=== PATIENT | female | born 2000 | race Caucasian/White ===

== ENCOUNTER 2024-04-06 16:40 | Emergency (ER) | payer MEDICAID ==
[2024-04-06 18:36] LABS: MAGNESIUM 1.8 mg/dL (1.7-2.3)
[2024-04-06 18:42] LABS: CALCIUM 10.1 mg/dL (8.5-10.3); CREATININE 0.6 mg/dL (0.6-1.3); POTASSIUM 3.1 mmol/L (3.5-4.5)
--- NOTE | 2024-04-06 19:40 | ED Physician Documentation ---
History of Present Illness - Stated complaint Stated Complaint: NAUSEA/VOMIT - Chief complaint Chief Complaint: Abd Pain - Additonal information Additional information: 23-year-old female who is approximately 8 weeks who has had a history of a stress send presents with nausea and vomiting. The patient has been dealing with nausea and vomiting since about 6 weeks of but worse the last several days. She was concerned she was getting dehydrated and was unable to keep anything down. She did have a virtual visit with her OB and they prescribed promethazine but patient was not able to keep this down this is here in the ER today requesting IV fluids. She does not have fever or chills, denies any abdominal pain, no vaginal bleeding, no dysuria urgency or frequency no diarrhea. No known sick contacts. Review of Systems Constitutional: reports: Reviewed and negative Ears: reports: Reviewed and negative Throat: reports: Reviewed and negative Cardiac: reports: Reviewed and negative Respiratory: reports: Reviewed and negative GI: reports: Nausea, Vomiting : reports: Now EGA Musculoskeletal: reports: Reviewed and negative Neurologic: reports: Generalized weakness PD PAST MEDICAL HISTORY - Past Medical History Past Medical History: No - Past Surgical History Past Surgical History: No - Present Medications Home Medications: Ambulatory Orders Medication Instructions Recorded Confirmed Doxylamine/Pyridoxine HCl 1 each PO QPM PRN #30 tab 04/06/24 [Cayden Kelsey 10-10 mg Tablet] Ondansetron Odt [Zofran] 4 mg TL Q6H PRN #10 tablet 04/06/24 Pnv No.95/Ferrous Fum/Folic AC 1 tab PO DAILY 04/06/24 04/06/24 [ Caplet] Promethazine Supp [Phenergan Supp] 1 supp NV BID PRN 04/06/24 04/06/24 - Allergies Allergies/Adverse Reactions: Allergies Allergy/AdvReac Type Severity Reaction Status Date / Time No Known Drug Allergies Allergy Verified 04/06/24 16:50 - Social History Does the pt smoke?: No Smoking Status: Never smoker Does the pt drink ETOH?: No PD ED PE NORMAL - Vitals Vital signs reviewed: Yes - General General: Alert and oriented X 3, No acute distress, Well developed/nourished - HEENT HEENT: Atraumatic, Moist mucous membranes - Cardiac Cardiac: No murmur, No gallop, No rub, Strong equal pulses, Other (Mild tachycardia) - Respiratory Respiratory: No respiratory distress, Clear bilaterally - Abdomen Abdomen: Normal bowel sounds, Soft, Non tender, Non distended Results - Vitals Vitals: Vital Signs - 24 hr 04/06/24 04/06/24 16:43 19:51 Temperature 36.6 C 37.6 C Heart Rate 111 H 100 Respiratory 16 18 Rate Blood Pressure 127/76 122/80 O2 Saturation 99 100 Oxygen O2 Source Room air - Labs Labs: Laboratory Tests 04/06/24 04/06/24 18:03 18:03 WBC 9.2 RBC 4.57 Hgb 13.6 Hct 39.6 MCV 86.7 MCH 29.8 MCHC 34.3 RDW 11.2 L Plt Count 359 MPV 9.4 Neut # (Auto) 6.3 Lymph # (Auto) 1.9 Randolph # (Auto) 0.8 Eos # (Auto) 0.0 Baso # (Auto) 0.0 Absolute Nucleated RBC 0.00 Nucleated RBC % 0.0 Sodium 131 L Potassium 3.1 L Chloride 93 L Carbon Dioxide 28 Anion Gap 10.0 BUN 15 Creatinine 0.6 Estimated GFR (MDRD) 124 Glucose 103 Calcium 10.1 Magnesium 1.8 PD Medical Decision Making - ED course Complexity details: reviewed results, re-evaluated patient, considered d ifferential, d/w patient, d/w family ED course: 23-year-old female presents with nausea and vomiting during the first trimester of . She has had symptoms for past 2 to 2-1/2 weeks but worse the last several days. She is well-appearing here on physical exam, mildly tachycardic but nontoxic, has no abdominal pain, no vaginal bleeding. Labs were obtained which are generally reassuring potassium slightly low at 3.1. We have given IV fluids, antiemetics and potassium replacement. Patient is tolerating some oral fluids and will discharge home after the conclusion of her medications. She should continue follow-up with her OB, we discussed supportive measures. I will also add Zofran as needed for her symptoms. Departure - Departure Clinical Impression: Hyperemesis gravidarum with electrolyte imbalance, Hypokalemia Condition: Good Instructions: ED Potassium Deficiency, ED Preg Morning Sickness Prescriptions: Doxylamine/Pyridoxine HCl [Cayden Kelsey 10-10 mg Tablet] 1 each PO QPM PRN #30 tab PRN Reason: Nausea / Vomiting Ondansetron Odt [Zofran] 4 mg TL Q6H PRN #10 tablet PRN Reason: Nausea / Vomiting Comments: I have prescribed a new nausea medication for you called Zofran which is dissolvable under your tongue, and I also prescribed medication to take at nighttime which will help with nausea but can also make you very sleepy. These are both generally considered safe to take in though you should use only as needed. Please continue follow-up with your primary doctor regarding your nausea and vomiting. This typically improves as you get into the second trimester but some people unfortunately suffer with that throughout their . Your potassium was slightly low today and we replaced that here, try to work on getting potassium in your diet through electrolytes solutions and things like fruits and vegetables. Forms: PCP List
[2024-04-06 19:50] LABS: BASOPHILS % (AUTO) 0.2 %; EOSINOPHILS % (AUTO) 0.4 %; HCT - HEMATOCRIT 39.6 % (37.0-47.0); HGB - HEMOGLOBIN 13.6 g/dL (12.0-16.0); LYMPHOCYTES # (AUTO) 1.9 10^3/uL (1.5-3.5); LYMPHOCYTES % (AUTO) 21.1 %; MEAN CORPUSCULAR HEMOGLOBIN 29.8 pg (27.0-31.0); MEAN CORPUSCULAR HGB CONC 34.3 g/dL (32.0-36.0); MEAN CORPUSCULAR VOLUME 86.7 fL (81.0-99.0); MEAN PLATELET VOLUME 9.4 fL (7.9-10.8); MONOCYTES # (AUTO) 0.8 10^3/uL (0.0-1.0); MONOCYTES % (AUTO) 8.9 %; NEUTROPHILS # (AUTO) 6.3 10^3/uL (1.5-6.6); NEUTROPHILS % (AUTO) 68.9 %; PLT - PLATELET COUNT 359 10^3/uL (130-450); RED BLOOD COUNT 4.57 10^6/uL (4.20-5.40); RED CELL DISTRIBUTION WIDTH 11.2 % (12.0-15.0); WHITE BLOOD COUNT 9.2 x10^3/uL (4.8-10.8)
[2024-04-06] MEDS: SODIUM CHLORIDE 0.9% 1,000 ML IV STA ×2 (19:53→21:15)
[2024-04-06] MEDS: ONDANSETRON 4 MG/2 ML VIAL IVP STA (19:54)
[2024-04-06] MEDS: POTASSIUM CHLOR 10 MEQ/100 ML 10 MEQ/100 ML BAG IV ONE (20:13)
[2024-04-06] MEDS: POTASSIUM CHLORIDE 20 MEQ/15 ML UDC PO STA (20:13)
[2024-04-06 20:30] LABS: BILIRUBIN,URINE SMALL (NEGATIVE); GLUCOSE, URINE (UA) NEGATIVE (NEGATIVE); KETONES,URINE (UA) 15 mg/dL (NEGATIVE); LEUKOCYTE ESTERASE, URINE LARGE (NEGATIVE); NITRITE,URINE NEGATIVE (NEGATIVE); OCCULT BLOOD,URINE TRACE-INTA (NEGATIVE); PROTEIN,URINE TRACE mg/dL (NEGATIVE); UROBILINOGEN,URINE 2 E.U./dL (NORMAL)
[2024-04-06 20:32] LABS: CLARITY,URINE CLOUDY (CLEAR)
[2024-04-06 20:38] LABS: BACTERIA,URINE Moderate /HPF (None Seen); RBC,URINE 0-5 /HPF (0-5); SQUAMOUS EPITHELIAL CELL,UR MOD Squamous (<= Few); WBC,URINE >25 /HPF (0-5)
[2024-04-06 21:27] VITALS: BP 116/82; O2SAT 98
== END 2024-04-06 21:29 | disposition home or self-care (01) ==
LOC: ED 16:40
DX: O21.1 Hyperemesis gravidarum with metabolic disturbance (principal); Z3A.08 8 weeks gestation of pregnancy
CPT/HCPCS: 36415; 80048; 81001; 83735; 85025; 96365; 96375; 99283; 99284; A9270; 80053; 81003; 83690; 87086